=== PATIENT | male | born 1980 | race Caucasian/White ===

== ENCOUNTER 2021-01-12 20:58 | Emergency (ER) | payer OTHER ==
[~2021-01-12] VITALS: Ht 185.4 cm; Wt 111.1 kg
[2021-01-12] MEDS ORDERED: LYRICA 75 MG CA75 MG PO (21:14)
[2021-01-12] MEDS ORDERED: IBUPROFEN 800800 M1 PO (21:55)
[2021-01-12] MEDS ORDERED: CIPROFLOXIN HC2.5 M1 OPHTHALMIC (21:55)
[2021-01-12] MEDS ORDERED: NORCO5 PO (21:55)
[2021-01-12 22:12] VITALS: BP 141/70
== END 2021-01-12 22:12 | disposition home or self-care (01) ==
LOC: M.ERS 20:58
DX: S05.02XA Injury of conjunctiva and corneal abrasion without foreign body, left eye, initial encounter (principal); Z90.49 Acquired absence of other specified parts of digestive tract; X58.XXXA Exposure to other specified factors, initial encounter; Y93.89 Activity, other specified; Y92.89 Other specified places as the place of occurrence of the external cause; Y99.8 Other external cause status